=== PATIENT | female | born 1990 ===

== ENCOUNTER 2019-07-29 12:47 | Outpatient (CLI) | payer OTHER ==
[~2019-07-29] VITALS: Ht 169 cm; Wt 77.7 kg
--- NOTE | 2019-07-29 12:55 | NUR ---
RHINA CHAPIN presented to unit via ambulatory from registration, accompanied by spouse, with c/o ABD PAIN. RHINA CHAPIN weighed, gowned, voided, and to bed. EFHM and TOCO applied, VS taken. RHINA CHAPIN oriented to bed controls, call light, TV, heat, and A/C controls.
[2019-07-29 13:10] VITALS: BP 125/61
--- NOTE | 2019-07-29 13:30 | NUR ---
Pt's stated she arrived due to lower abdominal pain. States they are from [place] and have been "traveling around". Denies care, but later states that an ultrasound in [place] 2-3 months ago stated that fetus was a girl and gave an approximate due date of end of July/early August. They are originally from [facility]. She is a 7 with 2 living children and 3 SAB's. August of 2018 she probably had a tubal in which " rt ovary was removed" in [place]. Denies vaginal bleeding, fluid leakage, smoking, alcohol, drugs, or problems with this . No contractions per monitor. Exam 3cms, 50% and -2. baseline 130's with accelerations. 1416 Dr Hope notified of pt's admission per phone prior to vag exam. 1455 Sono done at bedside with report from [facility] - 37.4 weeks with EDC of 08/15/19. Anterior positioned placenta, and anatomy WNL's. Pt denies pain at present. 1610 Dr Hope here to see pt. UA results reviewed. Gave script of Tylenol # 3 for pain when pt agreed that she did need something for pain. FHR 130's with accelerations and no contractions. Stressed the importance of finding a physician for remainder of . Gave [facility] phone number and informed dad to call soon for follow up care - since he states they will remain in the area. 1630 Discharged to home- ambulatory with father of baby and son.
[2019-07-29 14:40] LABS: BILIRUBIN,URINE NEGATIVE (NEGATIVE); CLARITY,URINE CLEAR; COLOR,URINE YELLOW; GLUCOSE, URINE (UA) NEGATIVE (NEGATIVE); KETONES,URINE NEGATIVE (NEGATIVE); LEUKOCYTE ESTERASE ,URINE 1+ (NEGATIVE); NITRITE,URINE NEGATIVE (NEGATIVE); PH,URINE 7 (5-9); PROTEIN,URINE 1+ (NEGATIVE); UROBILINOGEN,URINE NORMAL (NORMAL)
[2019-07-29 15:20] LABS: BACTERIA,URINE FEW /HPF; WBC,URINE 0-2 /HPF
[2019-07-29 15:21] LABS: SQUAMOUS EPITHELIAL CELL,UR 25-50 /HPF
--- NOTE | 2019-07-29 15:49 | Diagnostic Imaging Report ---
INDICATION: No care. TECHNIQUE: Multiple Real-time grayscale images were obtained over the gravid uterus. COMPARISON: None. FINDINGS: There is a single live fetus in a cephalic presentation. The heart rate was recorded at 143 BPM. The placenta is anterior. The amniotic fluid index is 19.0 cm. The survey is limited due to the advanced gestation. In particular, the intracranial contents as well as cord insertion are difficult to evaluate due to position. The kidneys, bladder, and stomach are unremarkable. There is a four-chamber heart. The spine is unremarkable. There is a three-vessel cord. The cord is in the region of the neck and nuchal cord cannot be excluded. MEASUREMENTS: Biometrical measurements are as follows: Biparietal 9.6 cm, age 39 weeks 1 days. Head circumference 33.0 cm, age 37 weeks 4 days. Abdominal circumference 32.0 cm, age 36 weeks 0 days. Femur length 7.2 cm, age 37 weeks 1 days. Sonographic estimate age: 37 weeks 4 days. Sonographic estimated date of delivery: 08/15/19. Estimated Weight: 3013 gm (+/- 440 gm). LMP percentile: 37%%. heart rate: 143 beats per minute. number: 1 of 1. IMPRESSION: There is a single live IUP of 37-38 weeks gestational age. The estimated date of confinement sonographically is 08/15/2019. The survey is limited due to the advanced gestational age and lie. There may be a nuchal cord. Dictated by: Dictated on workstation # [id number]
[2019-07-29] MEDS ORDERED: ACET-789 PO (16:09)
[2019-07-29 16:30] VITALS: BP 125/61
== END 2019-07-29 16:30 | disposition home or self-care (01) ==
LOC: WSo 12:47 → LDRP 12:49 → WSo 16:30
PROVIDERS: ATTEND Obstetrics & Gynecology
DX: O26.899 Other specified pregnancy related conditions, unspecified trimester (principal); R10.9 Unspecified abdominal pain; Z3A.00 Weeks of gestation of pregnancy not specified
CPT/HCPCS: 76805; 81000; 99213